=== PATIENT | male | born 1970 | race Caucasian/White ===

== ENCOUNTER 2017-02-11 09:07 | Day surgery (SDC) | payer BC ==
[~2017-02-11 09:07] MED LIST: Lactated Ringers 1,000 ML IV SCH; Lidocaine 1% 50 ML MDV ONE; ceFAZolin 2 GM in Premix Bag 1 BAG IV SCH
[2017-02-11] MEDS ORDERED: Lidocaine 1% 50 ML MDV ONE ×2 (09:29→09:30)
[2017-02-11] MEDS ORDERED: Propofol 200 MG/20 ML SDV ONE ×2 (09:30→09:51)
[2017-02-11] MEDS ORDERED: fentaNYL 250 MCG/5 ML SDV ONE (09:30)
[2017-02-11] MEDS ORDERED: Lidocaine 2% 5 ML SDV ONE (09:30)
[2017-02-11] MEDS ORDERED: Ondansetron 4 MG/2 ML SDV ONE ×2 (09:30→09:51)
[2017-02-11] MEDS ORDERED: Ketorolac 30 MG/ML SDV ONE (09:30)
[2017-02-11] MEDS ORDERED: Midazolam 1 MG/ML 2 ML SDV ONE ×2 (09:30→09:52)
[2017-02-11] MEDS ORDERED: cefOXitin 1 GM Vial ONE (09:30)
[2017-02-11] MEDS ORDERED: fentaNYL 100 MCG/2 ML SDV ONE (09:52)
--- NOTE | 2017-02-11 10:18 | PCM.PREANE ---
Preanesthetic Assessment - Procedure Proposed Procedure: Right knee arthroscopy - Anesthesia/Transfusion/Family Hx Anesthesia History: Prior Anesthesia Without Reaction Family History of Anesthesia Reaction: No Transfusion History: No Prior Transfusion(s) Intubation History: Unknown - Review of Systems General: No Symptoms Pulmonary: No Symptoms Cardiovascular: No Symptoms Gastrointestinal: No Symptoms Neurological: Gait Disturbance (due to right knee pain) Other: Reports: None - Physical Assessment NPO Status Date: 02/10/17 NPO Status Time: 23:00 O2 Sat by Pulse Oximetry: 95 Respiratory Rate: 16 Vital Signs: Last Vital Signs Temp 98.4 F 02/11/17 09:20 Pulse 71 02/11/17 09:20 Resp 16 02/11/17 09:20 BP 110/70 02/11/17 09:20 Pulse Ox 95 02/11/17 09:20 Height: 6 ft Weight: 259 lb Mental Status: Alert & Oriented x3 Airway Class: Mallampati = 1 Dentition: Reports: Normal Dentition, [place](s) (#8,9) Thyro-Mental Finger Breadths: 3 Mouth Opening Finger Breadths: 3 ROM/Head Extension: Full Lungs: Clear to Auscultation, Normal Respiratory Effort Cardiovascular: Regular Rate, Regular Rhythm, No Murmurs - Blood Blood Available: No Product(s) Available: None - Anesthesia Plan Pre-Op Medication Ordered: None - Acknowledgements Anesthesia Type Planned: General Anesthesia (LMA) Pt an Appropriate Candidate for the Planned Anesthesia: Yes Alternatives and Risks of Anesthesia Discussed w Pt/Guardian: Yes Pt/Guardian Understands and Agrees with Anesthesia Plan: Yes PreAnesthesia Questionnaire Endocrine/Metabolic History: Reports: Obesity/BMI 30+ - Past Surgical History Head Surgeries/Procedures: Reports: None Musculoskeletal Surgical History: Reports: Carpal Tunnel Other Musculoskeletal Surgeries/Procedures:: hx juani carpal tunnel release - SUBSTANCE USE Smoking Status *Q: Never Smoker Recreational Drug Use History: No - CURRENT (IN HOUSE) MEDS Current Meds: Current Medications Hydrocodone Bitart/Acetaminophen ([place] 325-5 Mg) 1 - 2 tab PO Q4H PRN PRN Reason: Pain Lactated Ringer's (Ringers, Lactated) 1,000 mls @ 100 mls/hr IV ASDIRECTED GISSELLE Last Admin: 02/11/17 09:35 Dose: 100 mls/hr Cefazolin Sodium/Dextrose 2 gm (/ Premix) 50 mls @ 100 mls/hr IV ONCALL GISSELLE Discontinued Medications Cefoxitin Sodium (Mefoxin) Confirm Administered Dose 1 gm .ROUTE .STK-MED ONE Stop: 02/11/17 09:31 Fentanyl (Sublimaze) Confirm Administered Dose 250 mcg .ROUTE .STK-MED ONE Stop: 02/11/17 09:31 Fentanyl (Sublimaze) Confirm Administered Dose 100 mcg .ROUTE .STK-MED ONE Stop: 02/11/17 09:53 Ketorolac Tromethamine (Toradol) Confirm Administered Dose 30 mg .ROUTE .STK- MED ONE Stop: 02/11/17 09:31 Lidocaine (Xylocaine-Mpf 2%) Confirm Administered Dose 10 ml .ROUTE .STK-MED ONE Stop: 02/11/17 09:31 Lidocaine HCl (Xylocaine 1%) Confirm Administered Dose 50 ml .ROUTE .STK-MED ONE Stop: 02/11/17 07:39 Lidocaine HCl (Xylocaine 1%) Confirm Administered Dose 50 ml .ROUTE .STK-MED ONE Stop: 02/11/17 09:30 Lidocaine HCl (Xylocaine 1%) Confirm Administered Dose 50 ml .ROUTE .STK-MED ONE Stop: 02/11/17 09:31 Midazolam HCl (Versed 1 Mg/Ml) Confirm Administered Dose 2 mg .ROUTE .STK-MED ONE Stop: 02/11/17 09:31 Midazolam HCl (Versed 1 Mg/Ml) Confirm Administered Dose 2 mg .ROUTE .STK-MED ONE Stop: 02/11/17 09:53 Ondansetron HCl (Zofran) Confirm Administered Dose 4 mg .ROUTE .STK-MED ONE Stop: 02/11/17 09:31 Ondansetron HCl (Zofran) Confirm Administered Dose 4 mg .ROUTE .STK-MED ONE Stop: 02/11/17 09:52 Propofol (Diprivan 20 Ml) Confirm Administered Dose 400 mg .ROUTE .STK-MED ONE Stop: 02/11/17 09:31 Propofol (Diprivan 20 Ml) Confirm Administered Dose 200 mg .ROUTE .STK-MED ONE Stop: 02/11/17 09:52
--- NOTE | 2017-02-11 12:04 | PCM.OPNOTE ---
- General Post-Op/Procedure Note Date of Surgery/Procedure: 02/11/17 Operative Procedure(s): R knee scope with PLM Post-Op Diagnosis: 1. ACL tear R knee. 2. R knee PLM. 3. DJD R knee Anesthesia Technique: General LMA Primary Surgeon: Li Carbajal Counseling Case Manager: Opal Hernandez in mLs: 5 Condition: Good Free Text/Narrative:: tt=23 min Dictation stopped unexpectedly. No number given.
[2017-02-11] MEDS: Acetaminophen/HYDROcodone 325-5 MG Tab PO PRN ×2 (12:25→13:38)
[2017-02-11 13:58] VITALS: BP 98/66
--- NOTE | 2017-02-11 14:05 | PCM.POSTAN ---
POST ANESTHESIA ASSESSMENT - MENTAL STATUS Mental Status: Alert, Oriented - RESPIRATORY Respiratory Status: Respiratory Rate WNL, Airway Patent, O2 Saturation Stable - CARDIOVASCULAR CV Status: Pulse Rate WNL, Blood Pressure Stable - GASTROINTESTINAL GI Status: No Symptoms - POST OP HYDRATION Hydration Status: Adequate & Stable
--- NOTE | 2017-02-11 17:53 | OR ---
SURGEON: Li Carbajal MD DATE OF PROCEDURE: 02/11/2017 PREOPERATIVE DIAGNOSIS: Right knee lateral meniscus tear. POSTOPERATIVE DIAGNOSES: 1. Right knee lateral meniscus tear. 2. Degenerative joint disease, right knee, tricompartmental. 3. Right knee anterior cruciate ligament tear. PROCEDURE: Right knee arthroscopy with partial lateral meniscectomy. [employer]OR GENERAL ENGINEERING: Opal Hernandez PA-C. ANESTHESIA: General. ESTIMATED BLOOD LOSS: 5 mL. TOURNIQUET TIME: 23 minutes. COMPLICATIONS: None. DVT PROPHYLAXIS: Not indicated. IMPLANTS USED: None. BRIEF HISTORY: Srikanth is a 46-year-old male who has had complaint of progressive right knee pain. He had failed conservative treatment. He did have an MRI in an outside facility which did show a tear of the lateral meniscus. Due to his lack of response to conservative treatment, I did recommend surgical intervention. The risks and goals of the procedure were discussed with the patient and were documented preoperatively. He agreed to proceed. DESCRIPTION OF PROCEDURE: The patient was properly identified and brought to the operating room. He was transferred from the OR cart and placed on the operating table in a supine position. General anesthesia was administered. After adequate anesthesia was obtained, a well-padded tourniquet was applied to the right lower extremity. The right lower extremity was then prepped in standard fashion using ChloraPrep solution. It was then sterilely draped. A time-out was performed to ensure correct site and procedure. Preoperative antibiotics were given. The surgical site had been marked preoperatively. An Esmarch was used to exsanguinate the right lower extremity and the tourniquet was inflated to 250 mmHg. A lateral portal arthrotomy was established. Blunt trocar and cannula were introduced into the suprapatellar pouch. Camera, inflow, and outflow were assembled. No significant synovitis was noted. The patellofemoral joint was visualized. He did have an area of grade 3 chondromalacia along the medial facet of the patella. The patella appeared to track centrally. I then extended down the lateral gutter. A large osteophyte was noted along the lateral femoral condyle. A similar osteophyte was noted along the medial femoral condyle. I then entered the medial compartment. A medial portal arthrotomy was established. A blunt probe was inserted. The meniscus was probed. It was found to be intact. The cartilage was inspected. There appeared to be evidence of grade 2 chondromalacia along the medial tibial plateau as well as the medial femoral condyle. I then entered the notch. The ACL was visualized. It did not appear to be attached to the lateral femoral condyle. Upon further inspection, it was noted to be torn and was scarred to the PCL. The PCL appeared intact. Finally entered the lateral compartment. Extensive tearing of the meniscus was found. The meniscus was probed and this tearing was found to be unstable. Using a combination of biters and shaver, this was resected back to stable remnant. It was again probed and found to be stable. The lateral tibial plateau did show evidence of grade 3 to grade 4 chondromalacia diffusely. Grade 3 chondromalacia was noted diffusely along the lateral femoral condyle. A chondroplasty of the lateral tibial plateau was performed. I again entered the patellofemoral joint. A portion of the fat pad was resected for visualization. Again noted was the area of grade 3 chondromalacia along the medial facet of the patella. And chondroplasty of this area was performed. Diffuse grade 2 to grade 3 chondral malacia was also noted along the trochlear groove. Instruments were then removed from the knee. The portal sites were closed with 3 -0 nylon. 1% lidocaine was injected along the portal tracts. Xeroform gauze was placed over the wound and a bulky dressing was applied. Tourniquet was then deflated. He was awakened from his anesthetic and transferred back to the operating cart. He is brought to recovery room in stable condition. All needle and sponge counts were correct. TRACY / KIMBER /[id number] YAHIR
== END 2017-02-11 13:45 | disposition home or self-care (01) ==
LOC: MW.SDS 09:07
PROVIDERS: ATTEND Orthopaedic Surgery
PROC: 0SBC4ZZ Excision of Right Knee Joint, Percutaneous Endoscopic Approach (ICD-10-PCS; principal; 2017-02-11)
DX: S83.281A Other tear of lateral meniscus, current injury, right knee, initial encounter (principal); M65.861 Other synovitis and tenosynovitis, right lower leg; M22.41 Chondromalacia patellae, right knee; M17.11 Unilateral primary osteoarthritis, right knee; S83.511A Sprain of anterior cruciate ligament of right knee, initial encounter; E66.9 Obesity, unspecified; Z87.891 Personal history of nicotine dependence; Z98.890 Other specified postprocedural states; Z68.35 Body mass index [BMI] 35.0-35.9, adult
CPT/HCPCS: 29881; A9270; J1885; J2250; J2405; J3010; J7120; 01400; 88304; J0694; J2704

== ENCOUNTER 2017-11-27 16:06 | Observation (INO) | payer BC ==
[2017-11-27] MEDS ORDERED: Sodium Chloride 0.9% 1,000 ML IV ONE (16:10)
--- NOTE | 2017-11-27 16:11 | EDM.PDOC ---
ED HPI GENERAL MEDICAL PROBLEM - General Stated Complaint: CHEST/BACK PAIN Time Seen by Provider: 11/27/17 16:10 Source of Information: Reports: Patient History Limitations: Reports: No Limitations - History of Present Illness INITIAL COMMENTS - FREE TEXT/NARRATIVE: HISTORY AND PHYSICAL: History of present illness: Patient is a 47-year-old male who presents to the emergency room with complaints of midsternal chest pain that radiates straight to his back. He states that this pain has been present since approximately 8:00 this morning, rating it at a 5 out of 10. He vaguely reports that it gets worse with activity and palpation. States he took 4 baby aspirin on 2 separate occasions this morning. He denies any fever, chills, shortness of breath or cough. Denies any abdominal pain, nausea, vomiting, diarrhea or constipation. Denies any headache , change in vision or diaphoresis. No recent trauma or injuries. He denies any previous history of cardiac problems. No significant family history of heart disease. He denies tobacco use; but does use a vaporize pen daily. Review of systems: As per history of present illness and below otherwise all systems reviewed and negative. Past medical history: As per history of present illness and as reviewed below otherwise noncontributory. Surgical history: As per history of present illness and as reviewed below otherwise noncontributory. Social history: No reported history of drug or alcohol abuse. Family history: As per history of present illness and as reviewed below otherwise noncontributory. Physical exam: General: Well-developed and well-nourished 47-year-old male. Alert and oriented. Nontoxic appearing and in no acute distress. HEENT: Atraumatic, normocephalic, pupils equal and reactive bilaterally, negative for conjunctival pallor or scleral icterus, mucous membranes moist, throat clear, neck supple, nontender, trachea midline. No drooling or trismus noted. No meningeal signs Lungs: Clear to auscultation, breath sounds equal bilaterally, chest nontender. Heart: S1S2, regular rate and rhythm without overt murmur, tachycardia Abdomen: Soft, nondistended, nontender. Negative for masses or hepatosplenomegaly. Negative for costovertebral tenderness. Pelvis: Stable nontender. Genitourinary: Deferred. Rectal: Deferred. Skin: Intact, warm, dry. No lesions or rashes noted. Extremities: Atraumatic, negative for cords or calf pain. Neurovascular unremarkable. Neuro: Awake, alert, oriented. Cranial nerves II through XII unremarkable. Cerebellum unremarkable. Motor and sensory unremarkable throughout. Exam nonfocal. Notes: Patient had aspirin prior to arrival. Nitro did not alleviate any of his pain. Labs are within normal limits. EKG is normal. Chest x-ray shows no infiltrate or pneumonia. His results were shared with the patient. Admission was offered for observation, he states he would be more comfortable staying overnight area Dr. Schreiber was consulted and informed of this patient. He is agreeable to admitting with telemetry. Diagnostics: CBC, CMP, troponin, EKG, chest x-ray Therapeutics: Nitroglycerin sublingual, normal saline, Toradol Impression: Chest pain r/o [place] Plan: Observation admission with Telemetry Definitive disposition and diagnosis as appropriate pending reevaluation and review of above. chest Pain Score (Numeric/FACES): 3 Middle Back Pain Score (Numeric/FACES): 3 - Related Data Allergies Allergy/AdvReac Type Severity Reaction Status Date / Time No Known Allergies Allergy Verified 11/27/17 16:19 Home Meds: Home Meds . [No Known Home Meds] 11/27/17 [History] Past Medical History Endocrine/Metabolic History: Reports: Obesity/BMI 30+ - Past Surgical History Head Surgeries/Procedures: Reports: None Musculoskeletal Surgical History: Reports: Arthroscopic Knee, Carpal Tunnel, Other (See Below) Other Musculoskeletal Surgeries/Procedures:: hx juani carpal tunnel release; meniscectomy ED ROS GENERAL - Review of Systems Review Of Systems: ROS reveals no pertinent complaints other than HPI. ED EXAM, GENERAL - Physical Exam Exam: See Below (See dictation) Course - Vital Signs Last Recorded V/S: Last Vital Signs Temp 97.5 F 11/28/17 04:00 Pulse 62 11/28/17 04:00 Resp 18 11/28/17 04:00 BP 99/55 L 11/28/17 04:00 Pulse Ox 97 11/28/17 04:00 - Orders/Labs/Meds Orders: Active Orders 24 hr Category Date Time Status Nitroglycerin [Nitrostat] Med 11/27/17 16:10 Active 0.4 mg SL Q5M PRN Medication Orders Acetaminophen (Tylenol) 650 mg PO Q6H PRN PRN Reason: Pain Nitroglycerin (Nitrostat) 0.4 mg SL Q5M PRN PRN Reason: Chest Pain Last Admin: 11/27/17 16:39 Dose: 0.4 mg Admin: 11/27/17 16:34 Dose: 0.4 mg Ondansetron HCl (Zofran) 4 mg IVPUSH Q4H PRN PRN Reason: Nausea Labs: Laboratory Tests 11/27/17 11/27/17 Range/Units 16:30 16:30 WBC 7.68 (4.0-11.0) K/uL RBC 4.55 (4.50-5.90) M/uL Hgb 14.3 (13.0-17.0) g/dL Hct 41.1 (38.0-50.0) % MCV 90.3 (80.0-98.0) fL MCH 31.4 (27.0-32.0) pg MCHC 34.8 (31.0-37.0) g/dL RDW Std Deviation 42.7 (28.0-62.0) fl RDW Coeff of Riley 13 (11.0-15.0) % Plt Count 268 (150-400) K/uL MPV 9.20 (7.40-12.00) fL Neut % (Auto) 63.5 (48.0-80.0) % Lymph % (Auto) 24.7 (16.0-40.0) % [place] % (Auto) 10.3 (0.0-15.0) % Eos % (Auto) 1.0 (0.0-7.0) % Baso % (Auto) 0.5 (0.0-1.5) % Neut # (Auto) 4.9 (1.4-5.7) K/uL Lymph # (Auto) 1.9 (0.6-2.4) K/uL [place] # (Auto) 0.8 (0.0-0.8) K/uL Eos # (Auto) 0.1 (0.0-0.7) K/uL Baso # (Auto) 0.0 (0.0-0.1) K/uL Nucleated RBC % 0.0 /100WBC Nucleated RBCs # 0 K/uL Sodium 139 (136-148) mmol/L Potassium 4.3 (3.5-5.1) mmol/L Chloride 105 (98-107) mmol/L Carbon Dioxide 25.5 (21.0-32.0) mmol/L BUN 24 H (7.0-18.0) mg/dL Creatinine 1.1 (0.8-1.3) mg/dL Est Cr Clr Drug Dosing 90.14 mL/min Estimated GFR (MDRD) > 60.0 ml/min Glucose 98 (74-106) mg/dL Calcium 9.0 (8.5-10.1) mg/dL Total Bilirubin 0.2 (0.2-1.0) mg/dL AST 20 (15-37) IU/L ALT 27 (14-63) IU/L Alkaline Phosphatase 36 L (46-116) U/L Troponin I < 0.050 (0.000-0.056) ng/mL Total Protein 7.3 (6.4-8.2) g/dL Albumin 3.9 (3.4-5.0) g/dL Globulin 3.4 (2.0-3.5) g/dL Albumin/Globulin Ratio 1.1 L (1.3-2.8) Meds: Medications Generic Name Dose Route Start Last Admin Trade Name Freq PRN Reason Stop Dose Admin Acetaminophen 650 mg 11/27/17 20:49 Tylenol PO Q6H PRN Pain Nitroglycerin 0.4 mg 11/27/17 16:10 11/27/17 16:39 Nitrostat SL 0.4 mg Q5M PRN Administration Chest Pain Ondansetron HCl 4 mg 11/27/17 20:10 Zofran IVPUSH Q4H PRN Nausea Discontinued Medications Generic Name Dose Route Start Last Admin Trade Name Freq PRN Reason Stop Dose Admin Sodium Chloride 1,000 mls @ 999 mls/hr 11/27/17 16:10 11/27/17 16:34 Normal Saline IV 11/27/17 17:10 999 mls/hr STAT ONE Administration Ketorolac Tromethamine 30 mg 11/27/17 17:02 11/27/17 17:10 Toradol IVPUSH 11/27/17 17:03 30 mg ONETIME ONE Administration Departure - Departure Time of Disposition: 19:09 Disposition: Admitted As Inpatient 65 Clinical Impression: Chest pain, rule out acute myocardial infarction - My Orders Last 24 Hours: My Active Orders 11/27/17 16:10 Nitroglycerin [Nitrostat] 0.4 mg SL Q5M PRN - Assessment/Plan Last 24 Hours: My Active Orders 11/27/17 16:10 Nitroglycerin [Nitrostat] 0.4 mg SL Q5M PRN
[2017-11-27] MEDS: Nitroglycerin 0.4 MG Tab.SL SL PRN ×2 (16:34→16:39)
[2017-11-27] MEDS ORDERED: Ketorolac 30 MG/ML SDV IVPUSH ONE (17:02)
[2017-11-27 17:28] LABS: CHLORIDE,CL 105 mmol/L (98-107); SODIUM,NA 139 mmol/L (136-148)
[2017-11-27] MEDS ORDERED: Ondansetron 4 MG/2 ML SDV IVPUSH PRN (20:10)
--- NOTE | 2017-11-27 20:15 | PCM.HP ---
H&P History of Present Illness - General Admit Problem/Dx: Admission Diagnosis/Problem Admission Diagnosis/Problem Chest pain, rule out acute myocardial infarction - History of Present Illness Initial Comments - Free Text/Narative: 47 yo male who presents with one day history of substernal chest pain that radiates to the back. He said if felt like a mild pulled muscle that did not change on positioning. He denies any shortness of breath, diaphoresis, or palpitations. He was seen in the ED and had no signs of ischmia on EKG or cardiac enzymes. chest Pain Score (Numeric/FACES): 2 - Related Data Allergies/Adverse Reactions: Allergies Allergy/AdvReac Type Severity Reaction Status Date / Time No Known Allergies Allergy Verified 11/27/17 16:19 Home Medications: Home Meds . [No Known Home Meds] 11/27/17 [History] Past Medical History HEENT History: Reports: None Cardiovascular History: Reports: None Respiratory History: Reports: None Gastrointestinal History: Reports: None Genitourinary History: Reports: None Musculoskeletal History: Reports: None Neurological History: Reports: None Psychiatric History: Reports: None Endocrine/Metabolic History: Reports: Obesity/BMI 30+ Other Endocrine/Metabolic History: borderline diabetic Hematologic History: Reports: None Immunologic History: Reports: None Oncologic (Cancer) History: Reports: None Dermatologic History: Reports: None - Past Surgical History Head Surgeries/Procedures: Reports: None Musculoskeletal Surgical History: Reports: Arthroscopic Knee, Carpal Tunnel, Other (See Below) Other Musculoskeletal Surgeries/Procedures:: hx juani carpal tunnel release; meniscectomy Social & Family History - Family History Family Medical History: Noncontributory - Tobacco Use Smoking Status *Q: Current Every Day Smoker Years of Tobacco use: 5 Packs/Tins Daily: 5 - Caffeine Use Caffeine Use: Reports: Coffee - Recreational Drug Use Recreational Drug Use: No H&P Review of Systems - Review of Systems: Review Of Systems: ROS reveals no pertinent complaints other than HPI. Exam - Exam Exam: See Below - Vital Signs Vital Signs: Last Vital Signs Temp 36.6 C 11/27/17 16:20 Pulse 89 11/27/17 17:54 Resp 16 11/27/17 17:54 BP 116/56 L 11/27/17 17:54 Pulse Ox 95 11/27/17 17:54 Weight: 102.058 kg - Exam General: Alert, Oriented HEENT: Mucosa Moist & [place] Lungs: Clear to Auscultation, Normal Respiratory Effort Cardiovascular: Regular Rate, Regular Rhythm GI/Abdominal Exam: Normal Bowel Sounds, Soft, Non-Tender Extremities: Non-Tender, No Pedal Edema Skin: Warm, Dry, Intact - Patient Data Lab Results Last 24 hrs: Laboratory Results - last 24 hr 11/27/17 11/27/17 Range/Units 16:30 16:30 WBC 7.68 (4.0-11.0) K/uL RBC 4.55 (4.50-5.90) M/uL Hgb 14.3 (13.0-17.0) g/dL Hct 41.1 (38.0-50.0) % MCV 90.3 (80.0-98.0) fL MCH 31.4 (27.0-32.0) pg MCHC 34.8 (31.0-37.0) g/dL RDW Std Deviation 42.7 (28.0-62.0) fl RDW Coeff of [place] 13 (11.0-15.0) % Plt Count 268 (150-400) K/uL MPV 9.20 (7.40-12.00) fL Neut % (Auto) 63.5 (48.0-80.0) % Lymph % (Auto) 24.7 (16.0-40.0) % [place] % (Auto) 10.3 (0.0-15.0) % Eos % (Auto) 1.0 (0.0-7.0) % Baso % (Auto) 0.5 (0.0-1.5) % Neut # (Auto) 4.9 (1.4-5.7) K/uL Lymph # (Auto) 1.9 (0.6-2.4) K/uL [place] # (Auto) 0.8 (0.0-0.8) K/uL Eos # (Auto) 0.1 (0.0-0.7) K/uL Baso # (Auto) 0.0 (0.0-0.1) K/uL Nucleated RBC % 0.0 /100WBC Nucleated RBCs # 0 K/uL Sodium 139 (136-148) mmol/L Potassium 4.3 (3.5-5.1) mmol/L Chloride 105 (98-107) mmol/L Carbon Dioxide 25.5 (21.0-32.0) mmol/L BUN 24 H (7.0-18.0) mg/dL Creatinine 1.1 (0.8-1.3) mg/dL Est Cr Clr Drug Dosing 90.14 mL/min Estimated GFR (MDRD) > 60.0 ml/min Glucose 98 (74-106) mg/dL Calcium 9.0 (8.5-10.1) mg/dL Total Bilirubin 0.2 (0.2-1.0) mg/dL AST 20 (15-37) IU/L ALT 27 (14-63) IU/L Alkaline Phosphatase 36 L (46-116) U/L Troponin I < 0.050 (0.000-0.056) ng/mL Total Protein 7.3 (6.4-8.2) g/dL Albumin 3.9 (3.4-5.0) g/dL Globulin 3.4 (2.0-3.5) g/dL Albumin/Globulin Ratio 1.1 L (1.3-2.8) Result Diagrams: 11/27/17 16:30 11/27/17 16:30 Problem List Initiated/Reviewed/Updated: Yes Orders Last 24hrs: Active Orders 24 hr Category Date Time Status Admission Status [Patient Status] [ADT] Stat ADT 11/27/17 18:10 Active Intake and Output [RC] QSHIFT Care 11/27/17 20:10 Ordered Oxygen Therapy [RC] PRN Care 11/27/17 20:10 Ordered Up ad [place] [RC] ASDIRECTED Care 11/27/17 20:10 Ordered VTE/DVT Education [RC] PER UNIT ROUTINE Care 11/27/17 20:10 Ordered Vital Signs [RC] Q4H Care 11/27/17 20:10 Ordered Regular Diet [DIET] Diet 11/27/17 Breakfast Ordered Chest 1V Frontal [CR] Stat Exams 11/27/17 16:10 Taken TROPONIN I [CHEM] Q6H Lab 11/27/17 22:00 Ordered TROPONIN I [CHEM] Q6H Lab 11/28/17 04:00 Ordered Nitroglycerin [Nitrostat] Med 11/27/17 16:10 Active 0.4 mg SL Q5M PRN Ondansetron [Zofran] Med 11/27/17 20:10 Ordered 4 mg IVPUSH Q4H PRN Sequential Compression Device [OM.PC] Per Unit Routine Oth 11/27/17 20:10 Ordered Resuscitation Status Routine Resus Stat 11/27/17 20:10 Ordered Medication Orders Nitroglycerin (Nitrostat) 0.4 mg SL Q5M PRN PRN Reason: Chest Pain Last Admin: 11/27/17 16:39 Dose: 0.4 mg Admin: 11/27/17 16:34 Dose: 0.4 mg Ondansetron HCl (Zofran) 4 mg IVPUSH Q4H PRN PRN Reason: Nausea Assessment/Plan Comment:: 47 yo male who we will observe overnight due to chest pain. He is currently chest pain free. We will monitored on telemetry and trend cardiac enzymes.
[2017-11-27] MEDS ORDERED: Acetaminophen 325 MG Tab PO PRN (20:49)
--- NOTE | 2017-11-28 09:14 | CR ---
EXAM DATE: 11/27/17 PATIENT'S AGE: 47 Patient: BLANCA CARDENAS Facility: [place], [place] Site . Site : [id number] Study: XRay Chest [id number] 4:52:11 PM Ordering Physician: Doctor [facility] Final Report: Indication: Chest pain Technique: Chest 1 view Comparison: None Findings/Impression: Cardiovascular and mediastinum: Unremarkable cardiomediastinal silhouette for a portable technique. Lungs and pleural space: Lungs are clear. No sign of infiltrate or mass. No sign of pleural effusion. No pneumothorax. Bones and soft tissues: A small calcific density projecting over the lateral aspect of the left scapula, nonspecific. Dictated by Taras Kuhn MD @ 11/27/2017 5:35:12 PM Dictated by: Taras Kuhn MD @ 11/27/2017 17:35:20 (Electronic Signature) Report Signed by Proxy. YAHIR
[2017-11-28 20:35] VITALS: BP 105/57
== END 2017-11-28 10:12 | disposition home or self-care (01) ==
LOC: MW.ED 16:06 → MW.ICU 18:10
PROVIDERS: ADMIT Internal Medicine; ATTEND Internal Medicine
DX: R07.2 Precordial pain (principal); F17.210 Nicotine dependence, cigarettes, uncomplicated; E66.9 Obesity, unspecified; Z68.30 Body mass index [BMI] 30.0-30.9, adult; Z98.890 Other specified postprocedural states
CPT/HCPCS: 36415; 71045; 71045-26; 80053; 80061; 83036; 84484; 85025; 96361; 96374; 99285-25; A9270-GY; G0378; J1885; J7040

== ENCOUNTER 2019-01-31 17:22 | Emergency (ER) | payer OTHER, BC ==
[2019-01-31 17:33] VITALS: BP 123/81
[2019-01-31] MEDS ORDERED: Ketorolac 60 MG/2 ML SDV IM ONE (17:34)
--- NOTE | 2019-01-31 17:34 | EDM.PDOC ---
ED HPI GENERAL MEDICAL PROBLEM - General Chief Complaint: Upper Extremity Injury/Pain Stated Complaint: SMASHED THUMB Time Seen by Provider: 01/31/19 17:27 - History of Present Illness INITIAL COMMENTS - FREE TEXT/NARRATIVE: HISTORY AND PHYSICAL: History of present illness: Patient's 48-year-old male presents with concern of acute injury to first digit of his right hand in the form of blunt force trauma that occurred when he hit with a pipe. He denies other trauma or concern Review of systems: As per history of present illness and below otherwise all systems reviewed and negative. Past medical history: As per history of present illness and as reviewed below otherwise noncontributory. Surgical history: As per history of present illness and as reviewed below otherwise noncontributory. Social history: No reported history of drug or alcohol abuse. Family history: As per history of present illness and as reviewed below otherwise noncontributory. Physical exam: HEENT: Atraumatic, normocephalic, pupils reactive, negative for conjunctival pallor or scleral icterus, mucous membranes moist, throat clear, neck supple, nontender, trachea midline. Lungs: Clear to auscultation, breath sounds equal bilaterally, chest nontender. Heart: S1S2, regular, negative for clicks, rubs, or JVD. Abdomen: Soft, nondistended, nontender. Negative for masses or hepatosplenomegaly. Negative for costovertebral tenderness. Pelvis: Stable nontender. Genitourinary: Deferred. Rectal: Deferred. Extremities: Patient is pain swelling and a subungual hematoma noted in the first digit of his right hand. Neurovascular exam is unremarkable Neuro: Awake, alert, oriented. Cranial nerves II through XII unremarkable. Cerebellum unremarkable. Motor and sensory unremarkable throughout. Exam nonfocal. Diagnostics: X-ray right hand Therapeutics: Toradol 60 mg IM drainage of subungual hematoma accomplished with cautery Impression: #1 acute injury right hand (first digit blunt force trauma) Definitive disposition and diagnosis as appropriate pending reevaluation and review of above. R thumb Pain Score (Numeric/FACES): 10 - Related Data Allergies Allergy/AdvReac Type Severity Reaction Status Date / Time No Known Allergies Allergy Verified 01/31/19 17:33 Home Meds: Home Meds . [No Known Home Meds] 11/27/17 [History] Past Medical History HEENT History: Reports: None Cardiovascular History: Reports: None Respiratory History: Reports: None Gastrointestinal History: Reports: None Genitourinary History: Reports: None Musculoskeletal History: Reports: None Neurological History: Reports: None Psychiatric History: Reports: None Endocrine/Metabolic History: Reports: Obesity/BMI 30+ Other Endocrine/Metabolic History: borderline diabetic Hematologic History: Reports: None Immunologic History: Reports: None Oncologic (Cancer) History: Reports: None Dermatologic History: Reports: None - Past Surgical History Head Surgeries/Procedures: Reports: None Musculoskeletal Surgical History: Reports: Arthroscopic Knee, Carpal Tunnel, Other (See Below) Other Musculoskeletal Surgeries/Procedures:: hx juani carpal tunnel release; meniscectomy Social & Family History - Family History Family Medical History: Noncontributory - Caffeine Use Caffeine Use: Reports: Coffee Review of Systems - Review of Systems Review Of Systems: ROS reveals no pertinent complaints other than HPI. ED EXAM, GENERAL - Physical Exam Exam: See Below (See dictation) Course - Vital Signs Last Recorded V/S: Last Vital Signs Temp 36.0 C 01/31/19 17:31 Pulse 89 01/31/19 17:31 Resp 16 01/31/19 17:31 BP 123/81 01/31/19 17:31 Pulse Ox 96 01/31/19 17:31 - Orders/Labs/Meds Orders: Active Orders 24 hr Category Date Time Status Fingers Thumb Rt F5 [CR] Stat Exams 01/31/19 17:25 Taken Meds: Medications Discontinued Medications Generic Name Dose Route Start Last Admin Trade Name Freq PRN Reason Stop Dose Admin Ketorolac Tromethamine 60 mg 01/31/19 17:34 Toradol IM 01/31/19 17:35 ONETIME ONE Departure - Departure Time of Disposition: 17:54 Disposition: Home, Self-Care 01 Condition: Good Clinical Impression: Hand injury, Subungual hematoma of digit of hand - Discharge Information Referrals: PCP,Unknown [Primary Care Provider] - Forms: ED Department Discharge Additional Instructions: The following information is given to patients seen in the emergency department who are being discharged to home. This information is to outline your options for follow-up care. We provide all patients seen in our emergency department with a follow-up referral. The need for follow-up, as well as the timing and circumstances, are variable depending upon the specifics of your emergency department visit. If you don't have a primary care physician on staff, we will provide you with a referral. We always advise you to contact your personal physician following an emergency department visit to inform them of the circumstance of the visit and for follow-up with them and/or the need for any referrals to a consulting specialist. The emergency department will also refer you to a specialist when appropriate. This referral assures that you have the opportunity for followup care with a specialist. All of these measure are taken in an effort to provide you with optimal care, which includes your followup. Under all circumstances we always encourage you to contact your private physician who remains a resource for coordinating your care. When calling for followup care, please make the office aware that this follow-up is from your recent emergency room visit. If for any reason you are refused follow-up, please contact the [facility] emergency department at and asked to speak to the emergency department charge nurse. Motrin/Tylenol as directed O primary medical doctor as needed as discussed splint as directed return as needed as discussed - My Orders Last 24 Hours: My Active Orders 01/31/19 17:25 Fingers Thumb Rt F5 [CR] Stat - Assessment/Plan Last 24 Hours: My Active Orders 01/31/19 17:25 Fingers Thumb Rt F5 [CR] Stat
--- NOTE | 2019-01-31 17:59 | CR ---
HISTORY: Pain after injury. FINDINGS: Three views of the right thumb are provided. There are no findings for fracture or dislocation. Mild degenerative change is noted of the 1st MCP joint and IP joint of the thumb. Dictated by Wing Eng MD @ Jan 31 2019 5:58PM Signed by Dr. Wing Eng @ Jan 31 2019 5:58PM
== END 2019-01-31 18:30 | disposition home or self-care (01) ==
LOC: MW.ED 17:22
DX: S60.111A Contusion of right thumb with damage to nail, initial encounter (principal); E66.9 Obesity, unspecified; W22.8XXA Striking against or struck by other objects, initial encounter
CPT/HCPCS: 73140; 96372; 99283; J1885